=== PATIENT | female | born 1960 | race Caucasian/White ===

== ENCOUNTER 2019-02-03 10:26 | Emergency (ER) | payer BC ==
[2019-02-03 10:38] VITALS: BP 104/72
[2019-02-03] MEDS ORDERED: Tetracaine 0.5% OPTH.SOL 4 ML* 1 DROP BTL LEFT EYE ONE (10:48)
[2019-02-03] MEDS ORDERED: Fluorescein Sodium TOPICAL* 1 MG TEST STRIP OPHTHALMIC ONE (10:48)
--- NOTE | 2019-02-03 10:57 | UC ---
Eye Complaint HPI - HPI Summary HPI Summary: 58 yo female presents with LEFT eye redness since yesterday. She says she thinks she may have itched her eye and later yesterday noticed some redness to the lateral aspect of her left eye that looked like blood. She has had a mild irritation feeling in that eye since that time. No other trauma, vision changes , or contact uses. - History of Current Complaint Chief Complaint: UCEye Stated Complaint: EYE COMPLAINT Time Seen by Provider: 02/03/19 10:48 Hx Obtained From: Patient Onset/Duration: Sudden Onset Severity Initially: Mild Severity Currently: Mild Pain Intensity: 2 Pain Scale Used: 0-10 Numeric - Allergies/Home Medications Allergies/Adverse Reactions: Allergies Allergy/AdvReac Type Severity Reaction Status Date / Time clindamycin Allergy See Comment Verified 02/03/19 10:39 Penicillins Allergy Unknown Verified 02/03/19 10:39 Reaction Details Sulfa (Sulfonamide Allergy Nausea Verified 02/03/19 10:39 Antibiotics) Home Medications: Home Medications Calcium Carbonate [Calcium/C/D] 1 chw PO 02/03/19 [History] Cholecalciferol (Vitamin D3) [Vitamin D3] 1,000 unit PO 02/03/19 [History] Cyanocobalamin TAB* [Vitamin B12 TAB*] 500 mcg PO DAILY 02/03/19 [History Confirmed 02/03/19] L.acidoph,Paracasei, B.lactis [Probiotic] 02/03/19 [History] Vaginal Insert 02/03/19 [History] PMH/Surg Hx/FS Hx/Imm Hx - Additional Past Medical History Additional PMH: None - Surgical History Surgical History: Yes Surgery Procedure, Year, and Place: bilat ear tubes, t&a, knee tumor removed, spinal tumor removed, uterin fibroids, hysterectomy - Family History Known Family History: Positive: None - Social History Occupation: Employed Full-time Lives: With Family Alcohol Use: None Substance Use Type: None Smoking Status (MU): Never Smoked Tobacco Review of Systems All Other Systems Reviewed And Are Negative: Yes Constitutional: Positive: Negative Skin: Positive: Negative Eyes: Positive: Eye Redness ENT: Positive: Negative Respiratory: Positive: Negative Cardiovascular: Positive: Negative Neurological: Positive: Negative Psychological: Positive: Negative Physical Exam - Summary Physical Exam Summary: GENERAL: WDWN. No pain distress. SKIN: No rashes, sores, lesions, or open wounds. HEENT: Head: AT/NC Eyes: EOM intact. PERRLA. LEFT EYE: Mild subconjunctival hemorrhage to lateral sclera of left eye. No FB appreciated. No conjunctiva inflammation or drainage. Fluorescein dye exam without abrasion, laceration, FB, or inés sign. Nose: NTTP maxillary and frontal sinus. NECK: Supple. Nontender. No lymphadenopathy. CHEST: No accessory muscle use. Breathing comfortably and in no distress. CV: Pulses intact. Cap refill <2seconds NEURO: Alert. PSYCH: Age appropriate behavior. Vital Signs: Initial Vital Signs Temp 98.1 F 02/03/19 10:32 Pulse 77 02/03/19 10:32 Resp 18 02/03/19 10:32 BP 104/72 02/03/19 10:32 Pulse Ox 100 02/03/19 10:32 Vital Signs Reviewed: Yes Eye Complaint Course/Dx - Course Course Of Treatment: Subconjunctival hemorrhage of left eye. - Differential Dx/Diagnosis Provider Diagnosis: Subconjunctival hemorrhage Discharge - Sign-Out/Discharge Documenting (check all that apply): Patient Departure All imaging exams completed and their final reports reviewed: No Studies - Discharge Plan Condition: Stable Disposition: HOME Patient Education Materials: Subconjunctival Hemorrhage (ED) Referrals: Akin Almonte MD [Primary Care Provider] - Additional Instructions: If you develop a fever, shortness of breath, chest pain, new or worsening symptoms - please call your PCP or go to the ED. Your eye exam did not show any sign of infection, scratch, or abrasion to the cornea today. This is likely a broken blood vessel within the eye that should heal by itself in a few days. - Billing Disposition and Condition Condition: STABLE Disposition: Home - Attestation Statements Provider Attestation: I was available for consult. This patient was seen by the LYN. The patient was not presented to, seen by, or examined by me. -Don
== END 2019-02-03 11:00 | disposition home or self-care (01) ==
LOC: UCEAST 10:26
DX: H11.32 Conjunctival hemorrhage, left eye (principal); Z88.1 Allergy status to other antibiotic agents; Z88.0 Allergy status to penicillin; Z88.2 Allergy status to sulfonamides
CPT/HCPCS: 99211; A9270-GY; G0463